=== PATIENT | male | born 1975 | race Asian ===

== ENCOUNTER 2023-09-29 14:20 | Inpatient (IN) | payer OTHER ==
[~2023-09-29] VITALS: Ht 177.8 cm; Wt 103.6 kg
[2023-09-29 14:36] VITALS: TEMP 98.5
[2023-09-29] MEDS: ALBUTEROL/IPRATROPIUM 3 ML NEB NEB ONE (14:54)
[2023-09-29] MEDS ORDERED: IOPAMIDOL 370 MG/ML 100 ML INFUS..BTL INJ ONE (16:37)
[2023-09-29] MEDS: SODIUM CHLORIDE 0.9% 1000ML 1,000 ML IV SCH (17:18)
[2023-09-29] MEDS ORDERED: SODIUM CHLORIDE FLUSH 10 ML SYR INJ PRN (19:00)
[2023-09-29 19:59] VITALS: PULSE 86; RESP 18
[2023-09-29] MEDS: IPRATROPIUM BROMIDE 0.02% 2.5 ML NEB NEB SCH (20:12)
[2023-09-29] MEDS: ALBUTEROL SULF 0.083% NEB SOLN 3 ML NEB NEB SCH (20:14)
[2023-09-29 21:07] VITALS: BP 142/86; PULSE 101; RESP 17; TEMP 98.2; O2SAT 99
[2023-09-29] MEDS ORDERED: ATROVENT HFA12.9 GM INH (22:16)
[2023-09-29] MEDS: CEFEPIME 2 GM in SODIUM CHLORIDE 0.9% 100 ML IV SCH (22:24)
[2023-09-29 23:02] VITALS: BP 142/86; PULSE 101; RESP 17; TEMP 98.2; O2SAT 99
[2023-09-29 23:11] VITALS: BP 142/86; PULSE 101; RESP 17; TEMP 98.2; O2SAT 99
[2023-09-30] VITALS (15 sets, daily range): BP systolic 124–134; BP diastolic 81–91; PULSE 73–95; RESP 16–18; TEMP 97.5–98.5; O2SAT 94–99
[2023-09-30 07:43] LABS: BASOPHILS % 0.1 % (0.0-1.0); HEMATOCRIT 44.3 % (38.2-49.6); HEMOGLOBIN 13.9 g/dL (14.0-18.0); LYMPHOCYTES % 13.2 % (18.0-39.1); MEAN CORPUSCULAR HEMOGLOBIN 28.2 pg (28-32); MEAN CORPUSCULAR HGB CONC 31.4 g/dL (31-35); MEAN CORPUSCULAR VOLUME 89.9 fL (81-99); MONOCYTES # (AUTO) 0.7 (0.2-0.8); MONOCYTES % 4.7 % (4.4-11.3); NEUTROPHILS # (AUTO) 12.1 (2.1-6.9); NEUTROPHILS % 81.4 % (38.7-80.0); PLATELET COUNT 263 x10e3/uL (140-360); RED BLOOD COUNT 4.93 x10e6/uL (4.3-5.7); RED CELL DISTRIBUTION WIDTH 13.9 % (11.7-14.4); WHITE BLOOD COUNT 14.89 x10e3/uL (4.8-10.8)
[2023-09-30 08:08] LABS: ANION GAP 14.8 mmol/L (8-16); CREATININE, SERUM 0.8 mg/dL (0.72-1.25); POTASSIUM 3.8 mmol/L (3.5-5.1)
[2023-09-30] MEDS ORDERED: METOPROLOL TARTRATE INJ 1 MG/ML VIAL IV PRN (10:15)
[2023-09-30] MEDS ORDERED: DOCUSATE SODIUM 100 MG CAP PO PRN (10:15)
[2023-09-30] MEDS ORDERED: ONDANSETRON HCL INJ 2MG/ML 2ML 2 MG/ML VIAL IV PRN (10:15)
[2023-09-30] MEDS ORDERED: GUAIFENESIN/DEXTROMETHORPHAN LIQD 5 ML UDC NG PRN (10:15)
[2023-09-30] MEDS ORDERED: SIMETHICONE 80 MG CHEW PO PRN (10:15)
[2023-09-30] MEDS: NICOTINE 21 MG/EA PATCH TOP SCH (11:02)
[2023-09-30] MEDS: METHYLPREDNISOLONE SOD SUCC 40 MG/ML VIAL 1ML IV SCH (11:02)
[2023-09-30] MEDS: FAMOTIDINE 20 MG TAB PO SCH (16:39)
[2023-09-30] MEDS: BENZONATATE 100 MG CAP PO SCH (16:39)
[2023-09-30] MEDS: ENOXAPARIN SOD INJ 40 MG/0.4 ML SYR SC SCH (16:39)
[2023-09-30] MEDS ORDERED: MELATONIN 3 MG TAB PO PRN (21:00)
[2023-10-01] VITALS (12 sets, daily range): BP systolic 122–145; BP diastolic 75–84; PULSE 74–92; RESP 17–20; TEMP 97.5–98.8; O2SAT 96–100
[2023-10-01 05:26] LABS: BASOPHILS % 0.2 % (0.0-1.0); HEMATOCRIT 44.9 % (38.2-49.6); HEMOGLOBIN 14.5 g/dL (14.0-18.0); LYMPHOCYTES # (AUTO) 1.3 (1.0-3.2); LYMPHOCYTES % 8.3 % (18.0-39.1); MEAN CORPUSCULAR HEMOGLOBIN 28.7 pg (28-32); MEAN CORPUSCULAR HGB CONC 32.3 g/dL (31-35); MEAN CORPUSCULAR VOLUME 88.9 fL (81-99); MONOCYTES # (AUTO) 0.6 (0.2-0.8); MONOCYTES % 3.9 % (4.4-11.3); NEUTROPHILS # (AUTO) 13.6 (2.1-6.9); PLATELET COUNT 269 x10e3/uL (140-360); RED BLOOD COUNT 5.05 x10e6/uL (4.3-5.7); RED CELL DISTRIBUTION WIDTH 13.9 % (11.7-14.4)
[2023-10-01 05:49] LABS: ANION GAP 17.5 mmol/L (8-16); CALCIUM 9.3 mg/dL (8.4-10.2); CREATININE, SERUM 0.85 mg/dL (0.72-1.25); POTASSIUM 3.5 mmol/L (3.5-5.1)
[2023-10-01] MEDS: LORATADINE 10 MG TAB PO SCH (08:07)
[2023-10-01] MEDS: ACETAMINOPHEN 325 MG TAB PO PRN (13:07)
[2023-10-01] MEDS: SODIUM BICARBONATE 650 MG TAB PO SCH (14:15)
[2023-10-02] VITALS (8 sets, daily range): BP systolic 121–137; BP diastolic 81–90; PULSE 70–95; RESP 16–19; TEMP 97.6–98.3; O2SAT 97–100
[2023-10-02 06:05] LABS: BASOPHILS # (AUTO) 0.1 (0.0-0.1); BASOPHILS % 0.5 % (0.0-1.0); EOSINOPHILS # (AUTO) 0.1 (0.0-0.4); EOSINOPHILS % 0.7 % (0.0-6.0); HEMATOCRIT 45.2 % (38.2-49.6); HEMOGLOBIN 14.2 g/dL (14.0-18.0); LYMPHOCYTES # (AUTO) 4.6 (1.0-3.2); LYMPHOCYTES % 35.2 % (18.0-39.1); MEAN CORPUSCULAR HEMOGLOBIN 28.5 pg (28-32); MEAN CORPUSCULAR HGB CONC 31.4 g/dL (31-35); MEAN CORPUSCULAR VOLUME 90.6 fL (81-99); MONOCYTES # (AUTO) 0.9 (0.2-0.8); MONOCYTES % 6.6 % (4.4-11.3); NEUTROPHILS # (AUTO) 7.3 (2.1-6.9); NEUTROPHILS % 56.2 % (38.7-80.0); PLATELET COUNT 251 x10e3/uL (140-360); RED BLOOD COUNT 4.99 x10e6/uL (4.3-5.7); RED CELL DISTRIBUTION WIDTH 14.1 % (11.7-14.4); WHITE BLOOD COUNT 12.95 x10e3/uL (4.8-10.8)
[2023-10-02 06:35] LABS: CREATININE, SERUM 0.9 mg/dL (0.72-1.25)
[2023-10-02 07:38] LABS: BASOPHILS % (MANUAL) 1 % (0-1.5); LYMPHOCYTES % (MANUAL) 23 % (19-48); MONOCYTES % (MANUAL) 6 % (3.4-9.0); NEUTROPHILS % (MANUAL) 61 % (40-74); PLATELET ESTIMATE ADEQUATE; PLATELET MORPHOLOGY COMMENT NORMAL; RBC MORPHOLOGY COMMENT NORMAL; REACTIVE LYMPHOCYTES 9
[2023-10-02] MEDS ORDERED: FAMOTIDINE20 MG PO (07:52)
[2023-10-02] MEDS ORDERED: LORATADINE10 MG PO (07:52)
[2023-10-02] MEDS ORDERED: PROAIR DIGIHAL90 MCG INH (07:52)
[2023-10-02] MEDS ORDERED: ZITHROMAX500 MG PO (07:52)
[2023-10-02] MEDS ORDERED: PREDNISONE20 MG PO (07:52)
[2023-10-02] MEDS ORDERED: NICODERM CQ1 EAC2 TOP (07:52)
[2023-10-02] MEDS ORDERED: CEPHALEXIN500 MG PO (07:52)
[2023-10-02] MEDS ORDERED: BENZONATATE100 MG PO (07:52)
[2023-10-02] MEDS: PREDNISONE 20 MG TAB PO SCH (08:47)
[2023-10-02] MEDS ORDERED: ONDANSETRON HCL 4 MG ORAL DISINTEGRATING TAB PO PRN (14:00)
[2023-10-02] MEDS ORDERED: AZITHROMYCIN 250 MG TAB PO SCH (19:00)
== END 2023-10-02 13:20 | disposition home or self-care (01) | DRG 871 ==
LOC: FSED 14:40 → ERHOLD 19:07 → MED/SURG2 21:40
PROVIDERS: ADMIT Internal Medicine; ATTEND Internal Medicine
PROC: 3E0333Z Introduction of Anti-inflammatory into Peripheral Vein, Percutaneous Approach (ICD-10-PCS; principal; 2023-09-29)
DX: A41.9 Sepsis, unspecified organism (principal); J18.9 Pneumonia, unspecified organism; J44.1 Chronic obstructive pulmonary disease with (acute) exacerbation; J98.01 Acute bronchospasm; R06.02 Shortness of breath; R06.03 Acute respiratory distress; Z11.52 Encounter for screening for COVID-19; F17.210 Nicotine dependence, cigarettes, uncomplicated
CPT/HCPCS: 36415; 71260; 80048; 80053; 82553; 83605; 83880; 84484; 85025; 85379; 94760; 94799; 99284; J0692; J1650; J2919; J7030; J7050; J7512; Q9967